=== PATIENT | female | born 1970 | race Hispanic/Latino ===

== ENCOUNTER 2017-05-01 23:14 | Emergency (ER) | payer SELFPAY | END 2017-05-01 23:55 | disposition home or self-care (01) | LOC: EDH 23:14 | DX: K02.9 Dental caries, unspecified (principal); Z88.0 Allergy status to penicillin ==

== ENCOUNTER 2024-11-16 17:15 | Emergency (ER) | payer SELFPAY ==
[~2024-11-16] VITALS: Ht 154.9 cm; Wt 71.2 kg
--- NOTE | 2024-11-16 17:23 | ERN ---
ED Note History of Present Illness Stated Complaint: SOB Chief Complaint: Shortness of Breath Time Seen by MD: 17:18 Dictation: PATIENT IS A 54-YEAR-OLD KNOWN ASTHMATIC FEMALE WITH COMPLAINTS OF HAVING SHORTNESS A BREATH AND EXPIRATORY WHEEZING ONSET 16:00 HOURS TODAY NO FEVER NO CHILLS NO NAUSEA VOMITING. NO CHEST PAIN SHE STATES SHE USED HER INHALER HOWEVER IT DID NOT WORK. HISTORY OF Allergies: Coded Allergies: Penicillins (Unverified Allergy, Unknown, 11/16/24) Past Medical History Past Medical History: Asthma History: Not Applicable RN Note Reviewed/Agreed w/PFSH: Yes Review of System Dictation CONSTITUTIONAL: NEGATIVE EXCEPT FOR HPI HEAD/FACE: NEGATIVE EXCEPT FOR HPI EENT: NEGATIVE EXCEPT FOR HPI RESPIRATORY: NEGATIVE EXCEPT FOR HPI SOB WITH A EXPIRATORY WHEEZE GASTROINTESTINAL/ABDOMINAL: NEGATIVE EXCEPT FOR HPI GENITOURINARY: NEGATIVE EXCEPT FOR HPI MUSCULOSKELETAL: NEGATIVE EXCEPT FOR HPI INTEGUMENTARY: NEGATIVE EXCEPT FOR HPI NEUROLOGICAL/PSYCH: NEGATIVE EXCEPT FOR HPI HEMATOLOGIC/LYMPHATIC: NEGATIVE EXCEPT FOR HPI ALL SYSTEMS NEGATIVE, EXCEPT NOTED ABOVE. 13 POINT REVIEW OF SYSTEMS ASSESSED AND ALL NEGATIVE EXCEPT FOR ABOVE. Initial Vital Sign VS Vital Signs Date Time Temp Pulse Resp B/P (MAP) Pulse Ox O2 Delivery O2 Flow Rate FiO2 11/16/24 17:37 80 20 11/16/24 17:41 97.9 144/87 99 Room Air* 0 21 Physical Exam Dictation VITAL SIGNS REVIEWED GENERAL APPEARANCE: ALERT, ORIENTED X 3, MILD ACUTE DISTRESS, WELL DEVELOPED, NOURISHED. HEAD AND FACE: NON-TRAUMATIC. EYES: PERRL, PINK CONJUNCTIVAS, EYELID NO TRAUMA, ANTERIOR CHAMBER WITH ARCUS SENILIS. EARS: PINNAS INTACT AND NO SIGNS OF TRAUMA OR ERYTHEMA EAR CANALS CLEAR AND NO DISCHARGE TM NO ERYTHEMA NOSE: NO DISCHARGE, NO BLEEDING. OROPHARYNX: MOUTH NORMAL, TONGUE PINK, PHARYNX CLEAR,NO ERYTHEMA, TONSILS NO EXUDATES, NO ABSCESSES NOTED, MUCOUS MEMBRANE MOIST NECK: SUPPLE, NON-TENDER, NO THYROMEGALY, NO MASSES, NO JVD, NO BRUITS BREAST:DEFERRED CHEST:NO TENDERNESS, NO CREPITUS, NO PARADOXICAL MOVEMENT, NO RETRACTIONS LUNGS:CLEAR, WELL-VENTILATED, SYMMETRIC, MILD EXPIRATORY WHEEZE BILATERAL LOWER LOBES. NO TIP TACHYPNEA NO RETRACTIONS MILD SOB HEART: REGULAR RATE, REGULAR RHYTHM, NO MURMUR, NO GALLOPS VASCULAR: NO PERIPHERAL EDEMA, ABDOMEN: SOFT, POSITIVE BOWEL SOUNDS, NONDISTENDED, NO GUARDING, NONTENDER, NO REBOUND, NO MASSES NO HEPATOMEGALY, NO SPLENOMEGALY, NO HANCOKC'S SIGN, NO HERNIAS. RECTAL: DEFERRED GENITAL: DEFERRED NEUROLOGICAL: NORMAL SPEECH, MOTOR FUNCTION INTACT, SENSORY FUNCTION INTACT MUSCULOSKELETAL: NECK NONTENDER, FULL RANGE OF MOTION, BACK NONTENDER, FULL RANGE OF MOTION, EXTREMITIES: NONTENDER, FULL RANGE OF MOTION SKIN: COLOR PINK, DRY, NO TURGOR, NO RASH, NO LACERATIONS, NO ABRASIONS, NO CONTUSIONS. LYMPHATIC: DEFERRED Results (Laboratory/Radiology) Labs Reviewed?: Yes ED Course ED Course Orders Procedure Category Date Status Time Dexamethasone 4mg/Ml PHA 11/16/24 Complete 1ml Vial (Dexametha 17:30 Albuterol 0.083% PHA 11/16/24 Complete 2.5mg/3ml (Proventil 17:30 Budesonide 0.5 Mg/2 PHA 11/16/24 Complete Ml Inh (Pulmicort 0. 17:19 Current Medications Medications (Trade) Dose Ordered Sig/Ryan Route PRN Reason Start Time Stop Time Status Last Admin Dose Admin Albuterol Sulfate (Proventil 0.083% 2.5mg/3ml) 5 mg ONCE ONCE IH 11/16/24 17:30 11/16/24 17:31 DC 11/16/24 17:37 Budesonide (Pulmicort 0.5 Mg/2ml) 0.5 mg ONCE STAT IH 11/16/24 17:19 11/16/24 17:24 DC 11/16/24 17:37 Dexamethasone Sodium Phosphate (dexaMETHasone 4MG/ML 1ML VIAL) 8 mg ONCE ONCE IM 11/16/24 17:30 11/16/24 17:31 DC Vital Signs Date Time Temp Pulse Resp B/P (MAP) Pulse Ox O2 Delivery O2 Flow Rate FiO2 11/16/24 17:41 97.9 75 18 144/87 99 Room Air* 0 21 11/16/24 17:37 80 20 1750/PATIENT FEELS MARKEDLY IMPROVED AFTER TREATMENT. SHE REFUSED DECADRON. SAID THE ALBUTEROL AND BUDESONIDE WAS ALL SHE NEEDED. BILATERAL BREATH SOUNDS CLEAR, RESPIRATIONS UNLABORED SATURATING 99% ROOM AIR, NO TACHYPNEA Medical Decision Making MDM MEDICAL DECISION-MAKING BASED ON EMPIRIC TREATMENT FOR ACUTE ASTHMA FLARE. PATIENT GIVEN BUDESONIDE AND ALBUTEROL REFUSED TO PRN DECADRON DISCHARGED HOME WITH ALBUTEROL AND MEDROL DOSEPAK TOLD SEE HER PRIMARY CARE DOCTOR DX & DISP Disposition: Discharge Departure Impression: Primary Impression: Acute asthma flare Condition: Stable Scripts Methylprednisolone (Medrol) 4 Mg Tab.ds.pk 1 TAB PO AD for 6 Days, #21 TAB 0 Refills 6 on day 1 then reduce by one tablet daily until gone Prov: ANABEL BERRIOS NP 11/16/24 Albuterol Sulfate (Ventolin Hfa/Proventil Hfa/Proair Hfa) 90 Mcg Puff 2 PUFF IH Q4H for WHEEZING, #1 INHALER 0 Refills Prov: ANABEL BERRIOS NP 11/16/24 Additional Instructions: FOLLOW-UP WITH PRIMARY CARE PROVIDER IN 1 TO 2 DAYS. TAKE MEDICATIONS [facility] HERE IN THE EMERGENCY ROOM. OKAY TO CONTINUE HOME MEDICATIONS UNLESS OTHERWISE DISCUSSED DURING YOUR VISIT IN THE EMERGENCY ROOM TODAY. RETURN TO YOUR NEAREST EMERGENCY ROOM IF SYMPTOMS WORSEN OR IF THERE IS NO IMPROVEMENT. CALL 911 IF YOU NEED IMMEDIATE ASSISTANCE. TAKE TYLENOL OR MOTRIN JDMW-[id number]-SRSOYOC NEEDED AND IF NO CONTRAINDICATIONS ARE PRESENT. INCREASE ORAL HYDRATION. A WOUND CULTURE OR URINE CULTURE WAS ORDERED HERE IN THE EMERGENCY ROOM DEPARTMENT PLEASE FOLLOW-UP WITH PRIMARY CARE PROVIDER AND ADVISE THEM TO GET REPEAT PORTS FROM OUR FACILITY. IF YOU HAD ANY ROBINSON WRAP/SPLINTS THAT WERE APPLIED HERE, PLEASE DO NOT REMOVE THEM UNTIL YOU SEE YOUR PRIMARY CARE OR SPECIALTY. TAKE MEDROL DOSEPAK DIRECTED UNTIL GONE., USE ALBUTEROL INHALER EVERY 4 HOURS WHILE AWAKE FOR THE NEXT TWO DAYS. SEE YOUR PRIMARY CARE DOCTOR FOR FOLLOW UP IN 1-2 DAYS. Referrals: CATIE VILLALOBOS DO (PCP) Time of Disposition: 17:55 I have reviewed the case, and I agree with, Diagnosis and Plan ANABEL BERRIOS NP Nov 16, 2024 17:23
[2024-11-16 17:37] VITALS: PULSE 80; RESP 20
[2024-11-16] MEDS: BUDESONIDE 0.5 MG/2 ML INH IH STA (17:37)
[2024-11-16] MEDS: ALBUTEROL 0.083% 2.5 MG/3 ML INH IH ONE (17:37)
[2024-11-16] MEDS ORDERED: METH4TAB3 PO (17:55)
[2024-11-16] MEDS ORDERED: ALBUHFA IH (17:55)
[2024-11-16 18:21] VITALS: BP 124/70; PULSE 84; RESP 20; TEMP 98; O2SAT 96
== END 2024-11-16 18:20 | disposition home or self-care (01) ==
LOC: EDH 17:15
DX: J45.909 Unspecified asthma, uncomplicated (principal); Z79.51 Long term (current) use of inhaled steroids; Z88.0 Allergy status to penicillin
CPT/HCPCS: 94640; 99283; J1100